=== PATIENT | male | born 1930 | race Asian ===

== ENCOUNTER 2018-04-14 18:13 | Emergency (ER) | payer OTHER ==
[~2018-04-14] VITALS: Ht 162.6 cm; Wt 67.6 kg
[2018-04-14 18:35] VITALS: Ht 162.6 cm; Wt 67.6 kg
[2018-04-14 19:32] LABS: BASOPHIL % 0.1 % (0-2); PLATELET COUNT 139 x10^3mcL (130-400)
[2018-04-14 19:43] LABS: CALCIUM 7.4 mg/dL (8.5-10.1); CARBON DIOXIDE 23.7 mmol/L (21-32); CHLORIDE SERUM 105 mmol/L (98-107); CREATININE SERUM 1.6 mg/dL (0.7-1.3); GLUCOSE SERUM 129 mg/dL (74-106); POTASSIUM SERUM 3.2 mmol/L (3.5-5.1); SODIUM SERUM 138 mmol/L (136-145)
[2018-04-14 19:47] LABS: ALKALINE PHOSPHATASE 58 U/L (46-116); ALT/SGPT 33 U/L (16-63); AST/SGOT 31 U/L (15-37); BILIRUBIN TOTAL 0.46 mg/dL (0.20-1.00); MAGNESIUM 1.7 mg/dL (1.8-2.4)
[2018-04-14 19:57] LABS: ALBUMIN 3.2 g/dL (3.4-5.0)
[2018-04-14 20:06] LABS: RED CELL DISTRIBUTION WIDTH 16.4 % (11.5-14.5)
[2018-04-14 22:34] VITALS: BP 125/81
== END 2018-04-14 22:35 | disposition left against medical advice (07) ==
LOC: ED 18:13
PROVIDERS: Emergency Medicine
DX: E87.6 Hypokalemia (principal); E86.0 Dehydration; D68.59 Other primary thrombophilia; E83.51 Hypocalcemia; E83.42 Hypomagnesemia; E11.8 Type 2 diabetes mellitus with unspecified complications; I48.91 Unspecified atrial fibrillation; N40.0 Benign prostatic hyperplasia without lower urinary tract symptoms; E78.00 Pure hypercholesterolemia, unspecified; Z95.0 Presence of cardiac pacemaker
CPT/HCPCS: 82962; 83880; J3490; J7030; J8597; Q0092

== ENCOUNTER 2019-01-17 18:05 | Inpatient (IN) | payer OTHER ==
[~2019-01-17] VITALS: Ht 167.6 cm; Wt 70.3 kg
[2019-01-17 18:13] VITALS: Ht 167.6 cm; Wt 70.3 kg
--- NOTE | 2019-01-17 18:17 | NUR ---
EKG IN PROGRESS. ERP MADE AWARE.
--- NOTE | 2019-01-17 18:20 | NUR ---
DR LINARES AT BEDSIDE FOR MSE.
--- NOTE | 2019-01-17 18:32 | NUR ---
PT WILL BE GOING TO CT PER ORDERS. SON AT BEDSIDE I EXPLAINED THE ADMITTING PROCESS TO HIM WELL DR LINARES
[2019-01-17 18:48] LABS: PLATELET COUNT 141 x10^3mcL (130-400)
[2019-01-17 18:52] LABS: RED CELL DISTRIBUTION WIDTH 17.1 % (11.5-14.5)
[2019-01-17 18:58] LABS: CALCIUM 8.2 mg/dL (8.5-10.1); CARBON DIOXIDE 26.6 mmol/L (21-32); CHLORIDE SERUM 104 mmol/L (98-107); CREATININE SERUM 1.5 mg/dL (0.7-1.3); GLUCOSE SERUM 151 mg/dL (74-106); POTASSIUM SERUM 3.8 mmol/L (3.5-5.1); SODIUM SERUM 139 mmol/L (136-145)
[2019-01-17 18:59] LABS: ALBUMIN 3.4 g/dL (3.4-5.0); ALKALINE PHOSPHATASE 64 U/L (46-116); ALT/SGPT 40 U/L (16-63); AST/SGOT 24 U/L (15-37); BILIRUBIN TOTAL 0.7 mg/dL (0.20-1.00); TOTAL PROTEIN, SERUM 7.2 g/dL (6.4-8.2)
--- NOTE | 2019-01-17 19:10 | NUR ---
REPORT GIVEN TO RN SHIRA TO ASSUME CARE
--- NOTE | 2019-01-17 19:12 | NUR ---
REPORT RECEIVED FROM YARI PEÑA
--- NOTE | 2019-01-17 19:19 | NUR ---
PT TAKEN TO RADIOLOGY IN [facility] WITH SON FOR INTERPRETATION
--- NOTE | 2019-01-17 19:38 | NUR ---
PT PROVIDED WITH WARM BLANKET FOR COMFORT. SON AT BEDSIDE. NAD AT THIS TIME. PT AXO X4
[2019-01-17 19:49] LABS: BAND NEUTROPHIL 0 % (0-10); BASOPHIL 0 % (0-2); MONOCYTE 2 % (0-7); SEGMENTED NEUTROPHILS 64 % (37-75)
[2019-01-17 19:50] LABS: rbc morphology (normal/abnorm) ABNORMAL (NORMAL)
[2019-01-17] MEDS ORDERED: TOPROL XL25 MG PO (21:17)
[2019-01-17] MEDS ORDERED: LIPI20 GT (21:17)
[2019-01-17] MEDS ORDERED: COLACE100 MG PO (21:17)
[2019-01-17] MEDS ORDERED: DOCUSATE SODIU100 M1 PO (21:18)
[2019-01-17] MEDS ORDERED: SYNTHROID0.05 MG PO (21:19)
[2019-01-17] MEDS ORDERED: PROSCAR5 MG PO (21:19)
[2019-01-17] MEDS ORDERED: MAGNESIUM OXID400 MG PO (21:20)
[2019-01-17] MEDS ORDERED: XARELTO10 M1 PO (21:21)
--- NOTE | 2019-01-17 21:30 | NUR ---
REPORT GIVEN TO MILLICENT PEÑA
--- NOTE | 2019-01-17 21:39 | NUR ---
RECEIVED PT VIA [employer] FROM E/D, ACCOMPANIED BY RN, TRANSPORTER, AND PT'S SON, COLLEEN CAMPBELL. PT CURRENTLY A/A/O X 4, CALM, COOPERATIVE. AMBULATORY, NO GAIT OR BALANCE IMPAIRMENT NOTED WHEN WALKING FROM GURNEY TO BED. ON TELE # 6, HR 72, PACED ON DEMAND W/ PVC'S; DENIES CHEST PAIN OR DISCOMFORT AT THIS TIME. IV SITE LAC 20G, CDI. ORIENTED PT AND SON TO ROOM, BED CONTROLS, CALL LIGHT SYSTEM. SIDE RAILS UP X 2, BED IN LOW POSITION. WILL ENDORSE TO MARIANA RICKS.
[2019-01-17 21:43] LABS: MAGNESIUM 1.6 mg/dL (1.8-2.4); PHOSPHOROUS 3.6 mg/dL (2.5-4.9)
[2019-01-17 21:47] LABS: T3 TOTAL 0.57 ng/mL
[2019-01-17 21:55] LABS: FREE T4 1.41 ng/dL (0.76-1.46); FREE THYROXINE INDEX 3.2 ug/dL (1.4-4.5)
[2019-01-17 22:47] VITALS: BP 124/78
[2019-01-18 00:24] LABS: microscopic required? NO
[2019-01-18 00:32] LABS: UA SPECIFIC GRAVITY <=1.005 (1.005-1.035); urine erythrocyte NEGATIVE (NEGATIVE)
[2019-01-18 00:42] LABS: AMPHETAMINE QUAL UR NONE DETECTED (See below)
--- NOTE | 2019-01-18 05:47 | NUR ---
PT RESTED IN INTERVALS DURING SHIFT. NO SOB NOTED. BREATHING EVEN AND UNLABORED ON ROOM AIR. NO C/O PAIN. NO DISTRESS NOTED. SAFETY MEASURES MAINTAINED.ALL NEEDS ATTENDED TO. CALL LIGHT WITHIN REACH. BED ALARM ON. WILL CONTINUE TO MONITOR AND ENDORSE CARE TO DAY SHIFT.
[2019-01-18 05:52] VITALS: BP 142/87
[2019-01-18 06:28] LABS: BASOPHIL % 0.3 % (0-2); PLATELET COUNT 165 x10^3mcL (130-400)
[2019-01-18 06:29] LABS: RED CELL DISTRIBUTION WIDTH 16.8 % (11.5-14.5)
[2019-01-18 06:54] LABS: CALCIUM 7.9 mg/dL (8.5-10.1); CARBON DIOXIDE 28.3 mmol/L (21-32); CHLORIDE SERUM 107 mmol/L (98-107); CREATININE SERUM 1.3 mg/dL (0.7-1.3); GLUCOSE SERUM 94 mg/dL (74-106); MAGNESIUM 2.2 mg/dL (1.8-2.4); PHOSPHOROUS 3.6 mg/dL (2.5-4.9); POTASSIUM SERUM 3.7 mmol/L (3.5-5.1); SODIUM SERUM 144 mmol/L (136-145)
--- NOTE | 2019-01-18 07:30 | NUR ---
RECEIVED PT IN BED. HE IS TRYING TO PULL HIS IV AND TRYING TO GET OUT OF BED. USED MANDARIN SPEAKING NURSE FOR TRANSLATION, NURSE SAID PT IS CONFUSED, NOT SAYING HIS NAME, PT SAYING HE IS TIED UP HERE, HE DOESNOT WANT IV CONNECTED. DISCONNECTED IV FOR NOW. PT IS ANGERY FOR PEOPLE COMING IN HIS ROOM AND ASKING HIM QUESTIONS. WHEN NURSE ASK WHAT IS PT NAME, HE SAID "I DONOT HAVE NAME" AND DONO'S ASK ANY QUESTIONS. UNABLE TO ASSESS ORIENTAION THIS TIME BECAUSE OF PT NOT COOOPERATING. CLOSELY MONITERING THE PT. SAFTEY PRECAUTIONS AND BED ALARM IN PLACE.
--- NOTE | 2019-01-18 07:40 | NUR ---
PT GOT OUT OF BED. AMBULATING WELL WITH STEADY GAIT BUT STILL DOESNOT WANT TO COOPERATE FOR ANSWERING QUESTIONS AND ASSESSMENT.
--- NOTE | 2019-01-18 07:50 | NUR ---
PT RESTING IN BED COMFORTABLY, SON CAME TO VISIT PT. SON COMMUNICATING WITH PT. PT SAID HE IS AFRAID TO ANSWER QUESTIONS AND FRUSTRATED WITH NURSES ASKING QUESTIONS FOR ASSESS HIS NEUROLOGY SYSTEM.
[2019-01-18 08:30] VITALS: BP 158/76
--- NOTE | 2019-01-18 10:00 | NUR ---
PT RESTING IN BED COMFORTABLY. CALM THIS TIME. PT IS AWAKE,ALERT AND ORIENTED X3. STILL DOESNOT LIKE NURSES ASKING QUESTIONS AND ASSESSING PT.
--- NOTE | 2019-01-18 10:00 | NUR ---
AND DID ROUNDS, INFORMED THEM ABOUT PT WAS AGITATED AND WAS NOT COOPERATING FOR ASSESSMENT IN AM. ALSO INFORMED ABOUT PT REFUSING IVF TO CONNECT, SHE SAID SHE WILL DC THE IVF. PT IS EATING AND DRINKING ADEQUATE. PT IS STABLE.
--- NOTE | 2019-01-18 11:00 | NUR ---
TELE NEURO CALLED AND INFORMED, WAITING FOR CALL BACK.
--- NOTE | 2019-01-18 11:00 | NUR ---
PT AMBULATING IN THE HALLWAY WITH HIS SON. STABLE.
[2019-01-18 12:30] VITALS: BP 124/82
--- NOTE | 2019-01-18 13:00 | NUR ---
INFORMED THAT NEURO DOCTOR CALLED HER AND TOLD HER THEY WILL WAIT FOR CT ANGIO OF NECK AND BRAIN RESULTS BEFORE CALLING PT. CHARGE NURSE AWARE. TELE NEURO SCREEN AT THE BEDSIDE.
--- NOTE | 2019-01-18 15:09 | NUR ---
PT TAKEN VIA W/C TO RADIOLOGY DEPT; PT A/A/O X 4, CALM, COOPERATIVE, DENIES PAIN OR DISCOMFORT AT THIS TIME.
--- NOTE | 2019-01-18 15:24 | NUR ---
RADIOLOGY CALLED, STATED THAT PT IS COMBATIVE AND REFUSING TO HAVE CT HEAD DONE, EVEN W/ SON BY BEDSIDE. PT WILL BE RETURNED TO ROOM VIA W/C. WILL ENDORSE TO MARIANA CALLES.
[2019-01-18 16:20] VITALS: BP 140/88
--- NOTE | 2019-01-18 16:23 | NUR ---
PT WENT DOWN FOR CT ANGIO BRAIN AND NECK BUT PT WAS AGITATED AND COMBATIVE THERE AND CT STAFF BROUGHT PT BACK WITH OUT DOING TEST, INFORMED ABOUT THAT AND RECEIVED ORDER FOR ATIVAN 1MG IV, GIVEN.
--- NOTE | 2019-01-18 17:15 | NUR ---
PT IS CONFUSED AND HALLUCINATING, TRYING TO GET OUT OF BED. CT STAFF CAME TO REGISTERED NURSE FIRST ASSISTANT PT FOT CT AGIO AGAIN BUT THEY SAID THEY CANNOT TAKE PT LIKE THE WAY HE IS NOW, INFORMED , SHE CAME IN THE ROOM FOR TO ASSESS PT AND TOLD CT STAFF TO HOLD THE TEST FOR TODAY. ASSISTED PT BACK IN THE, PT IS RESTLESS AND CONFUSED STILL, STAYING WITH PT. SON AT BEDSIDE.
--- NOTE | 2019-01-18 18:35 | NUR ---
PT IS SLEEPING THIS TIME. STABLE. CALLED CT AND INFORMED ABOUT PT IS CALM THIS TIME AND COME AND TAKE FOR CT ANGIO TEST.
--- NOTE | 2019-01-18 19:20 | NUR ---
PT RESTING IN BED AND SLEEPING. STABLE. GAVE REPORT TO OVEN PRESS TENDER NURSE.
--- NOTE | 2019-01-18 19:50 | NUR ---
RECEIVED PATIENT SLEEPING WITH NO SIGN OF DISTRESS, BREATHING EASY AND NONLABOR WITH CLEAR BS SATTING AT 99% RA. TELE#6 PACED ON DEMAND WITH OCCASIONAL PVC ON MONITOR. NO INDICATION OF CHEST DISCOMFORT NOTED. IV TO LAC HEPLOCKED FLUSHED WITH NS. SON AT BEDSIDE. FOR CT ANGIO AND BRAIN , CELLOPHANE WRAPPING EXAMINER MADE AWARE. WILL CONTINUE TO MONITOR. CALL LIGHT WITHIN REACH.
--- NOTE | 2019-01-18 20:12 | NUR ---
DOWN TO CT ANGIO BROUGHT BY PLANNING MANAGEMENT IT SPECIALIST VIA BED ACCOMPANIED BY SON.
--- NOTE | 2019-01-18 20:29 | NUR ---
PATIENT BACK FROM DT WITH SON AND TECH. WILL CONTINUE TO MONITOR.
[2019-01-18 20:58] VITALS: BP 144/87
--- NOTE | 2019-01-19 00:27 | NUR ---
CALLED SOC TELEMED TO VERIFY FOLLOW UP SESSION FOR 01/19/19 BETWEEN 8 TO 11 AM ALONG WITH REQUIRED INFORMATION TO BE FAXED OVER. WILL ENDORSE TO AM NURSE.
--- NOTE | 2019-01-19 05:12 | NUR ---
CHECKED AT INTERVALS FOR NEEDS NAD SAFETY. NO INDICATION OF PAIN AND DISCOMFORT NOTED THE ENTIRE SHIFT. SON AT BEDSIDE.
[2019-01-19 06:04] VITALS: BP 142/95
--- NOTE | 2019-01-19 06:35 | NUR ---
ALL REQUIRED INORMATION REQUESTED BY SOC TELEMEDS FAXED AND FAX CONFORMATION RECEIVED.
--- NOTE | 2019-01-19 06:39 | NUR ---
ALL REQUIRED INFORMATION REQUESTED BY SOC TELEMED FAXED AND FAX CONFIRMATION RECEIVED.
[2019-01-19 06:52] LABS: BASOPHIL % 0.6 % (0-2); PLATELET COUNT 152 x10^3mcL (130-400)
[2019-01-19 06:54] LABS: RED CELL DISTRIBUTION WIDTH 16.9 % (11.5-14.5)
[2019-01-19 07:07] LABS: CALCIUM 8.2 mg/dL (8.5-10.1); CARBON DIOXIDE 27.7 mmol/L (21-32); CHLORIDE SERUM 106 mmol/L (98-107); CREATININE SERUM 1.3 mg/dL (0.7-1.3); GLUCOSE SERUM 125 mg/dL (74-106); MAGNESIUM 1.8 mg/dL (1.8-2.4); PHOSPHOROUS 3.8 mg/dL (2.5-4.9); POTASSIUM SERUM 4.1 mmol/L (3.5-5.1); SODIUM SERUM 141 mmol/L (136-145)
--- NOTE | 2019-01-19 07:20 | NUR ---
RECEIVED PT FROM SWITCH REPAIRER RN. Shirley/BEATRIZ. SON AT BEDSIDE TRANSLATING. TELE#6. DENIES CHEST PAIN/PRESSURE. RESPIRATIONS EQUAL AND UNLABORED ON RA. DENIES SOB. PT DENIES ANY PAIN AT THIS TIME. SITTING UP AT BEDSIDE EATING DINNER, PT AMBULATORY WITH ASSISTANCE. IV TO LAC SALINE LOCKED. NO REDNESS OR SWELLING NOTED. TELE NEURO MONITOR AT BEDSIDE, TURNED ON, NO CALL RECEIVED YET. PT SON AWARE OF TELE NEURO AND WHAT TO EXPECT. WILL CONTINUE TO MONITOR. CALL LIGHT IN REACH. BED IN LOWEST POSITION.
[2019-01-19 08:03] VITALS: BP 118/70
--- NOTE | 2019-01-19 08:52 | NUR ---
TELE NEURO COMPLETE. DR. CRAWFORD NEUROLOGIST RECOMMENDS CHANGING PT XARELTO TO ELIQUIS. PER DR. CRAWFORD WILL FAX OVER RECOMMENDATIONS.
--- NOTE | 2019-01-19 09:05 | NUR ---
PT STANDING UP AT BEDSIDE. NO ACUTE RESP DISTRESS NOTED ON RA. PT DENIES ANY PAIN AT THIS TIME. STEADY GAIT. GIVEN PO MEDS. TOLERATED WELL. PT AND SON ASKING ABOUT DISCHARGE. EXPLAINED TO PT AND SON WE ARE STILL WAITING ON RECOMMENDATIONS FOR DR. CRAWFORD PRIOR TO DISCHARGING. PT AND SON VERBALIZED UNDERSTANDING. WILL CONTINUE TO MONITOR. CALL LIGHT IN REACH. BED IN LOWEST POSITION.
[2019-01-19] MEDS ORDERED: ELIQUIS2.5 MG PO (10:12)
[2019-01-19] MEDS ORDERED: GLIMEPIRIDE2 M1 PO (10:13)
[2019-01-19] MEDS ORDERED: ACCU-CHEK1 EAC2 MC (10:13)
[2019-01-19 10:39] VITALS: BP 118/70
--- NOTE | 2019-01-19 11:10 | NUR ---
PT SITTING UP IN BED. SON AT BEDSIDE. PT GIVEN DISCHARGE INSTRUCTIONS. PT EXPLAINED HE CAN CONTINUE ACTIVITY TOLERATED. RECOMMENDED PT FOLLOW DIABETIC DIET. PT ENCOURAGED TO RETURN TO ER IF ANY SYMPTOMS OF SLURRED SPEECH, DIFFICULTY SWALLOWING, DROOPED FACIAL FEATURES, WEAKNESS OR NUMBNESS TO ONE SIDE. PT PROVIDED DISCHARGE INSTRUCTIONS WITH LABS AND CT RESULTS. PT ENCOURAGED TO TAKE WITH HIM TO FOLLOW UP APPOINTMENT. PT ENCOURAGED TO FOLLOW WITH PCP WITHIN 2 TO 3 DAYS AND WRAPPER DIPPER WITHIN 1 WEEKS. PT NOTIFIED OF FOLLOW UP APPOINTMENT SCHEDULED WITH DR. BOO ON 01/30 AT 10:15AM. PT SON STATES "I WILL TRY TO SEE IF I CAN SCHEDULE AN EARLIER APPOINTMENT." PT GIVEN PRESCRIPTIONS FOR ELIQUIS, GLIMPERIDE AND GLUCOMETER. PT AND SON EDUCATED ON SIDE EFFECTS OF MEDICATION AND WHEN TO USE. PT AND SON VERBALIZED UNDERSTANDING. PT AND SON INFORMED TO STOP TAKING METROPOLOL AND XARELTO. PT AND SON VERBALIZED UNDERSTANDING. ALL QUESTIONS AND CONCERNS ADDRESSED. NO PROBLEMS ENCOUNTERED. IV TO LAC REMOVED CATHETER INTACT. NO REDNESS OR SWELLING NOTED. TELE#6 REMOVED AND RETURNED TO SENIOR ANALYTIC CONSULTANT BRYSON. PT WALKED OFF FLOOR WITH SAUSAGE MEAT TRIMMER.
== END 2019-01-19 11:11 | disposition home or self-care (01) | DRG 47 ==
LOC: ED 18:05 → DU 20:53
PROVIDERS: Emergency Medicine; ADMIT Internal Medicine
DX: G45.9 Transient cerebral ischemic attack, unspecified (principal); N17.0 Acute kidney failure with tubular necrosis; G93.40 Encephalopathy, unspecified; E11.65 Type 2 diabetes mellitus with hyperglycemia; I48.0 Paroxysmal atrial fibrillation; E83.42 Hypomagnesemia; D50.9 Iron deficiency anemia, unspecified; G90.8 Other disorders of autonomic nervous system; E03.9 Hypothyroidism, unspecified; Z95.0 Presence of cardiac pacemaker; Z79.01 Long term (current) use of anticoagulants; Z79.84 Long term (current) use of oral hypoglycemic drugs; Z79.899 Other long term (current) drug therapy
CPT/HCPCS: 82962; 83880; 84439; 97116-GP; G0378; J2060; J3475; J7030; Q0092; Q9967